=== PATIENT | female | born 1970 | race Native Hawaiian/Other Pacific Islander ===

== ENCOUNTER 2018-08-26 11:21 | Day surgery (SDC) | payer BC | END 2018-08-26 15:30 | disposition home or self-care (01) | LOC: OR 11:21 | PROC: 0DB68ZZ Excision of Stomach, Via Natural or Artificial Opening Endoscopic (ICD-10-PCS; principal; 2018-08-26) | PROC: 0D738ZZ Dilation of Lower Esophagus, Via Natural or Artificial Opening Endoscopic (ICD-10-PCS; 2018-08-26) | DX: K21.0 Gastro-esophageal reflux disease with esophagitis (principal); K22.2 Esophageal obstruction; K44.9 Diaphragmatic hernia without obstruction or gangrene; K25.9 Gastric ulcer, unspecified as acute or chronic, without hemorrhage or perforation; K29.50 Unspecified chronic gastritis without bleeding; R11.0 Nausea; R13.19 Other dysphagia; R10.13 Epigastric pain; K92.1 Melena; D50.8 Other iron deficiency anemias | CPT/HCPCS: J2001; J2250; J2405; J2704 ==

== ENCOUNTER 2018-09-09 11:00 | Day surgery (SDC) | payer BC | END 2018-09-09 15:06 | disposition home or self-care (01) | LOC: OR 11:00 | PROC: 0DJD8ZZ Inspection of Lower Intestinal Tract, Via Natural or Artificial Opening Endoscopic (ICD-10-PCS; principal; 2018-09-09) | DX: K57.30 Diverticulosis of large intestine without perforation or abscess without bleeding (principal); K64.8 Other hemorrhoids; D50.9 Iron deficiency anemia, unspecified; K92.2 Gastrointestinal hemorrhage, unspecified; K92.1 Melena | CPT/HCPCS: 85014; 85018; J2001; J2250; J2405; J2704 ==

== ENCOUNTER 2018-09-28 01:39 | Emergency (ER) | payer BC ==
[~2018-09-28] VITALS: Ht 170.2 cm; Wt 97.5 kg
[2018-09-28 02:42] LABS: PLATELET COUNT 332 K/uL (152-353)
[2018-09-28 04:03] VITALS: BP 110/72; TEMP 98.9
== END 2018-09-28 04:05 | disposition home or self-care (01) ==
LOC: ED 01:39
PROVIDERS: Family Medicine
DX: N39.0 Urinary tract infection, site not specified (principal); R10.30 Lower abdominal pain, unspecified; Z98.890 Other specified postprocedural states
CPT/HCPCS: 36415; 74022; 80053; 81000; 85027; 87086; 87088; 99283

== ENCOUNTER 2018-11-23 12:55 | Outpatient (CLI) | payer BC | END 2018-11-24 05:53 | disposition home or self-care (01) | LOC: RAD 12:55 | DX: K21.0 Gastro-esophageal reflux disease with esophagitis (principal); K44.9 Diaphragmatic hernia without obstruction or gangrene; D50.8 Other iron deficiency anemias ==

== ENCOUNTER 2018-11-26 07:36 | Outpatient (CLI) | payer BC | END 2018-11-26 20:13 | disposition home or self-care (01) | LOC: NM 07:36 | DX: R11.0 Nausea (principal); K44.9 Diaphragmatic hernia without obstruction or gangrene; R07.89 Other chest pain | CPT/HCPCS: A9541 ==

== ENCOUNTER 2018-12-02 11:55 | Day surgery (SDC) | payer BC | END 2018-12-02 15:10 | disposition home or self-care (01) | LOC: OR 11:55 | PROC: 0DB68ZZ Excision of Stomach, Via Natural or Artificial Opening Endoscopic (ICD-10-PCS; principal; 2018-12-02) | DX: K44.9 Diaphragmatic hernia without obstruction or gangrene (principal); K21.0 Gastro-esophageal reflux disease with esophagitis; K29.50 Unspecified chronic gastritis without bleeding; K25.9 Gastric ulcer, unspecified as acute or chronic, without hemorrhage or perforation; D50.9 Iron deficiency anemia, unspecified; R10.9 Unspecified abdominal pain | CPT/HCPCS: J2001; J2250; J2704 ==